=== PATIENT | male | born 1960 | race Caucasian/White ===

== ENCOUNTER 2024-10-05 08:03 | Outpatient (REF) | payer MEDICARE, BC, SELFPAY ==
--- NOTE | 2024-10-05 08:15 | EMG_ITS ---
Right median and ulnar motor and sensory studies were performed. Right radial sensory and median and lateral antecubital brachial sensory studies were performed and needle examination was performed. IMPRESSION: 1. Acute right axillary neuropathy. 2. [id number] right median neuropathy across carpal tunnel. 3. No evidence of plexopathy or radiculopathy. Please see the attached neurophysiology data report MD GABRIELA Corea/PEDRITO / [id number] MTDD
== END 2024-10-05 08:04 | disposition home or self-care (01) ==
LOC: HO.NEURO 08:03
PROVIDERS: Visit Provider Orthopaedic Surgery Hand Surgery
DX: S43.004A Unspecified dislocation of right shoulder joint, initial encounter (principal); S44.31XA Injury of axillary nerve, right arm, initial encounter; G56.31 Lesion of radial nerve, right upper limb; G56.11 Other lesions of median nerve, right upper limb
CPT/HCPCS: 95886; 95910

== ENCOUNTER → 2024-10-05 08:15 | Outpatient (BNV) | payer MEDICARE, BC, SELFPAY | PROVIDERS: Visit Provider Psychiatry & Neurology Neurology | DX: G56.01 Carpal tunnel syndrome, right upper limb (principal); G56.11 Other lesions of median nerve, right upper limb | CPT/HCPCS: 95886; 95910 ==